=== PATIENT | female | born 1985 | race Caucasian/White ===

== ENCOUNTER 2018-02-14 00:32 | Inpatient (IN) ==
--- NOTE | 2018-02-14 01:03 | Emergency Department Note ---
Disposition Clinical Impression: Suicidal ideation, Polysubstance (excluding opioids) dependence Bipolar affective disorder, current episode mixed Qualifiers: Current episode severity: unspecified Qualified Code(s): F31.60 - Bipolar disorder, current episode mixed, unspecified Disposition: Home, Self-Care Referrals: NONE,PCP [Primary Care Provider] - Leonela Zhong [Family Provider] - Forms: ED Satisfaction Letter Time of Disposition: 06:37 Psych HPI - General Chief Complaint: ED Psychiatric Symptoms Stated Complaint: si,hi off meds Time Seen by Provider: 02/14/18 00:55 Nursing Notes Reviewed: Yes Vital Signs Reviewed: Yes - History of Present Illness Pt complaint: suicidal ideation If medical clearance, reason: psychiatric condition Onset (ago): hour(s) Duration: constant, getting worse History of similar episodes: Yes Improves with: none Worsens with: none Context: recent drug abuse, not taking psychiatric medications Alleged intoxication: No Associated Psychiatric Symptoms: depression, suicidal ideation, racing thoughts , anxiety Associated symptoms: Denies: headache, shortness of breath, nausea, vomiting Traumatic symptoms: denies traumatic injury Treatments prior to arrival: none Self harm or harm to others: admits thoughts of self harm, denies having a plan - Related Data Previous Rx's Medication Instructions Recorded hydrOXYzine pamoate [HydrOXYzine 25 mg PO TID PRN #90 capsule 12/13/17 Pamoate] lamoTRIgine [Lamictal] 25 mg PO BID #60 tablet 12/13/17 traZODone [TraZODone] 50 mg PO HS PRN #30 tablet 12/13/17 Allergies Allergy/AdvReac Type Severity Reaction Status Date / Time No Known Allergies Allergy Verified 02/14/18 00:38 All systems ED: reviewed and negative except as stated. Review of Systems: As Per HPI Constitutional: Denies: fever, chills Eyes: Denies: vision change ENT ED: Reports: other (mouth sores) Cardiovascular: Denies: chest pain Respiratory: Denies: dyspnea Gastrointestinal: Denies: abdominal pain, nausea, vomiting Genitourinary: Denies: dysuria Musculoskeletal: Denies: back pain Integumentary: Denies: rash Neurological: Denies: headache Psychiatric: Reports: as per HPI Endocrine: Denies: fatigue Hematological/Lymphatic: Denies: easy bleeding Allergic/Immunologic: Denies: facial swelling Past Medical History - Past Medical History Medical history: Reports: no medical history Surgical history: Reports: non-contributory, cholecystectomy Psychiatric history: Reports: anxiety, bipolar, depression, prior suicide attempt, previous psychiatric hospitalization - Social History Smoking Status: Current every day smoker Smokeless Tobacco Status: No Alcohol use: Reports: occasionally Drug use: Reports: methamphetamine, IV Drug Use, prescription drug abuse Physical Exam - General Limitations: no limitations General appearance: alert, in no apparent distress - Head Head exam: normocephalic - Eye Eye exam: Present: EOMI, conjunctival injection - ENT ENT exam: normal oropharynx - Neck Neck exam: Present: full ROM - Chest Chest inspection: Present: symmetric chest wall rise - Respiratory Respiratory exam: Absent: respiratory distress - Cardiovascular Cardiovascular exam: Present: regular rate - Abdominal Exam Abdominal exam: Present: soft, Non-Tender - Extremities Exam Extremities exam: Present: full ROM, normal capillary refill - Back Exam Back exam: Present: full ROM - Neurological Exam Neurological exam: Present: alert - Psychiatric Psychiatric exam: Present: normal affect, anxious - Skin Skin exam: Present: warm, dry, intact, normal color. 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 Report patient is a [facility], but had left recent come back. She mentioned she is currently off her psychiatric medications. She denies any injury or trauma. We will attempt to medically clear her for 1a evaluation. - Reevaluation(s) Reevaluation #1: Patient's potassium 3.1. Likely nutritional, By mouth potassium ordered here. The rest of her lab work appears to be at her baseline. She does have a slightly decreased WBC count, she does have known history of hepatitis. This appears to be chronic. Patient was concerned with sores in her mouth. No notable sores on my examination. Patient did have some other concerns, that I do feel can be evaluated on an outpatient for primary care basis. At this point I see no acute concerns, I do feel patient is safe for behavioral health evaluation. Time: 03:04 Reevaluation #2: Patient was evaluated by behavioral health staff, and I discussed patient with Maria Del Rosario Yin RN who had evaluated patient was discussed with on-call psychiatrist Dr. Landin, they had advised for inpatient treatment for stabilization. At this time I am told that there were no available behavioral health beds, and patient will be placed. Patient has requested her home medications including hydroxyzine, and trazodone, as well as a nicotine patch. These have been ordered. Additionally patient mentions recent IV drug use in risky sexual activities. Patient does have dated history of hepatitis C, we will order a hepatitis panel, and HIV testing. Patient's vitals remained stable. She has no abdominal tenderness. No evidence of any acute medical concerns at this time , I do feel patient will be safe for transfer for transfer. At this time it seemed to my shift, care of this patient will be transferred to day shift providers, Rosalba Martinez PA-C, likely daytime attending. Please see their documentation for additional details. At this time I feel it is likely that patient will be transferred, however please see their documentation for final disposition. Time: 06:00 Vital Signs Temperature 98.6 F 02/14/18 00:34 Pulse Rate 93 02/14/18 00:34 Respiratory Rate 16 02/14/18 00:34 Blood Pressure 93/56 02/14/18 00:34 O2 Sat by Pulse Oximetry 93 02/14/18 00:34 Temperature 99.1 F 02/14/18 03:09 Pulse Rate 92 02/14/18 06:12 Respiratory Rate 16 02/14/18 06:12 Blood Pressure 136/88 02/14/18 06:12 O2 Sat by Pulse Oximetry 98 02/14/18 06:12 Oxygen Delivery Oxygen Delivery Room Air Psych - MDM Narrative Medical decision making narrative: Laboratory Tests 02/14/18 02/14/18 02/14/18 00:54 00:54 00:55 WBC RBC Hgb Hct MCV MCH MCHC RDW Plt Count MPV Immature Gran % Seg Neutrophils % Lymphocytes % Monocytes % Eosinophils % Basophils % Neutrophils # Lymphocytes # Monocytes # Eosinophils # Basophils # Nucleated RBCs/100 WBC Reactive Lymphocytes Platelet Estimate Large Platelets Microcytosis Sodium Potassium Chloride Carbon Dioxide BUN Creatinine Est GFR ( Amer) Est GFR (Non-Af Amer) BUN/Creatinine Ratio Glucose Calculated Osmolality Calcium TSH Urine Color Dark Yellow Urine Clarity Cloudy A Urine pH 6.0 Ur Specific [place] > 1.030 H Urine Protein 100 H Urine Glucose (UA) Normal Urine Ketones Trace H Urine Blood Negative Urine Nitrite Negative Urine Bilirubin Negative Urine Urobilinogen Normal Ur Leukocyte Esterase Negative Urine Microscopic RBC 0-3 Urine Microscopic WBC 3-5 H Ur Squamous Epith Cells Many H Urine Bacteria None Seen Hyaline Casts None Seen Urine Mucus Few Ur Culture Indicated? NO Urine Test Negative Salicylates Urine Opiates Screen Negative Acetaminophen Ur Barbiturates Screen Negative Ur Phencyclidine Scrn Negative Ur Amphetamines Screen Positive H U Benzodiazepines Scrn Negative Urine Cocaine Screen Negative U Marijuana (THC) Screen Negative Ethyl Alcohol 02/14/18 02/14/18 02/14/18 01:04 01:04 01:05 WBC 3.3 L RBC 4.43 Hgb 11.6 Hct 35.0 L MCV 79.0 L MCH 26.2 L MCHC 33.1 RDW 14.8 H Plt Count 142 MPV 10.7 Immature Gran % 0.3 Seg Neutrophils % 42.7 Lymphocytes % 44.5 Monocytes % 11.0 Eosinophils % 0.9 Basophils % 0.6 Neutrophils # 1.4 L Lymphocytes # 1.5 Monocytes # 0.4 Eosinophils # 0.0 Basophils # 0.0 Nucleated RBCs/100 WBC 0.6 H Reactive Lymphocytes Present A Platelet Estimate Normal Large Platelets Present A Microcytosis Present A Sodium 139 Potassium 3.1 L Chloride 106 Carbon Dioxide 23 BUN 15 Creatinine 0.81 Est GFR ( Amer) > 60 Est GFR (Non-Af Amer) > 60 BUN/Creatinine Ratio 19 Glucose 117 H Calculated Osmolality 290 Calcium 9.3 TSH 0.897 Urine Color Urine Clarity Urine pH Ur Specific [place] Urine Protein Urine Glucose (UA) Urine Ketones Urine Blood Urine Nitrite Urine Bilirubin Urine Urobilinogen Ur Leukocyte Esterase Urine Microscopic RBC Urine Microscopic WBC Ur Squamous Epith Cells Urine Bacteria Hyaline Casts Urine Mucus Ur Culture Indicated? Urine Test Salicylates < 2.5 L Urine Opiates Screen Acetaminophen < 10 L Ur Barbiturates Screen Ur Phencyclidine Scrn Ur Amphetamines Screen U Benzodiazepines Scrn Urine Cocaine Screen U Marijuana (THC) Screen Ethyl Alcohol < 10 - Lab Data Result diagrams: 02/14/18 01:04 02/14/18 01:04 Lab Results 02/14/18 02/14/18 02/14/18 Range/Units 00:54 00:54 00:55 WBC (4.3-11.1) K/mcL RBC (3.82-4.97) M/mcL Hgb (11.5-15.4) g/dL Hct (35.3-44.9) % MCV (83.0-100.0) fL MCH (28.0-33.3) pg MCHC (31.6-35.5) g/dL RDW (11.5-14.5) % Plt Count (140-400) K/mcL MPV (9.4-12.4) fL Immature Gran % (0-4) % Seg Neutrophils % % Lymphocytes % % Monocytes % % Eosinophils % % Basophils % % Neutrophils # (1.6-8.9) K/mcL Lymphocytes # (0.6-4.6) K/mcL Monocytes # (0.0-1.3) K/mcL Eosinophils # (0.0-0.6) K/mcL Basophils # (0.0-0.2) K/mcL Nucleated RBCs/100 WBC (0) /100 WBC Reactive Lymphocytes (Not Present) Platelet Estimate (Normal) Large Platelets (Not Present) Microcytosis (Not Present) Sodium (136-145) mEq/L Potassium (3.5-5.1) mEq/L Chloride (98-107) mEq/L Carbon Dioxide (23-29) mEq/L BUN (6-20) mg/dL Creatinine (0.60-1.20) mg/dL Est GFR ( Amer) (> 60) Est GFR (Non-Af Amer) (> 60) BUN/Creatinine Ratio (6-26) Glucose (70-105) mg/dL Calculated Osmolality (280-300) Calcium (8.6-10.3) mg/dL TSH (0.340-5.600) mcIU/mL Urine Color Dark Yellow (Yellow) Urine Clarity Cloudy A (Clear) Urine pH 6.0 (5.0-8.0) pH Units Ur Specific [place] > 1.030 H (1.010-1.025) Urine Protein 100 H (Neg-Trace) mg/dL Urine Glucose (UA) Normal (Normal) mg/dL Urine Ketones Trace H (Negative) mg/dL Urine Blood Negative (Negative) Urine Nitrite Negative (Negative) Urine Bilirubin Negative (Negative) Urine Urobilinogen Normal (Normal) mg/dL Ur Leukocyte Esterase Negative (Negative) Urine Microscopic RBC 0-3 (0-3) per hpf Urine Microscopic WBC 3-5 H (0-3) per hpf Ur Squamous Epith Cells Many H (None-Few) per lpf Urine Bacteria None Seen (None-Few) per hpf Hyaline Casts None Seen (None-Few) per lpf Urine Mucus Few (Few) Ur Culture Indicated? NO (NO) Urine Test Negative (Negative) Salicylates (15.0-30.0) mg/dL Urine Opiates Screen Negative (Msrlmh=239) ng/mL Acetaminophen (10-20) mcg/mL Ur Barbiturates Screen Negative (Exnkuu=131) ng/mL Ur Phencyclidine Scrn Negative (Cutoff=25) ng/mL Ur Amphetamines Screen Positive H (Pqmehx=1117) ng/mL U Benzodiazepines Scrn Negative (Qobmnh=693) ng/mL Urine Cocaine Screen Negative (Cutoff= 300) ng/mL U Marijuana (THC) Screen Negative (Cutoff = 50) ng/mL Ethyl Alcohol (Less than 10) mg/dL 02/14/18 02/14/18 02/14/18 Range/Units 01:04 01:04 01:05 WBC 3.3 L (4.3-11.1) K/mcL RBC 4.43 (3.82-4.97) M/mcL Hgb 11.6 (11.5-15.4) g/dL Hct 35.0 L (35.3-44.9) % MCV 79.0 L (83.0-100.0) fL MCH 26.2 L (28.0-33.3) pg MCHC 33.1 (31.6-35.5) g/dL RDW 14.8 H (11.5-14.5) % Plt Count 142 (140-400) K/mcL MPV 10.7 (9.4-12.4) fL Immature Gran % 0.3 (0-4) % Seg Neutrophils % 42.7 % Lymphocytes % 44.5 % Monocytes % 11.0 % Eosinophils % 0.9 % Basophils % 0.6 % Neutrophils # 1.4 L (1.6-8.9) K/mcL Lymphocytes # 1.5 (0.6-4.6) K/mcL Monocytes # 0.4 (0.0-1.3) K/mcL Eosinophils # 0.0 (0.0-0.6) K/mcL Basophils # 0.0 (0.0-0.2) K/mcL Nucleated RBCs/100 WBC 0.6 H (0) /100 WBC Reactive Lymphocytes Present A (Not Present) Platelet Estimate Normal (Normal) Large Platelets Present A (Not Present) Microcytosis Present A (Not Present) Sodium 139 (136-145) mEq/L Potassium 3.1 L (3.5-5.1) mEq/L Chloride 106 (98-107) mEq/L Carbon Dioxide 23 (23-29) mEq/L BUN 15 (6-20) mg/dL Creatinine 0.81 (0.60-1.20) mg/dL Est GFR ( Amer) > 60 (> 60) Est GFR (Non-Af Amer) > 60 (> 60) BUN/Creatinine Ratio 19 (6-26) Glucose 117 H (70-105) mg/dL Calculated Osmolality 290 (280-300) Calcium 9.3 (8.6-10.3) mg/dL TSH 0.897 (0.340-5.600) mcIU/mL Urine Color (Yellow) Urine Clarity (Clear) Urine pH (5.0-8.0) pH Units Ur Specific [place] (1.010-1.025) Urine Protein (Neg-Trace) mg/dL Urine Glucose (UA) (Normal) mg/dL Urine Ketones (Negative) mg/dL Urine Blood (Negative) Urine Nitrite (Negative) Urine Bilirubin (Negative) Urine Urobilinogen (Normal) mg/dL Ur Leukocyte Esterase (Negative) Urine Microscopic RBC (0-3) per hpf Urine Microscopic WBC (0-3) per hpf Ur Squamous Epith Cells (None-Few) per lpf Urine Bacteria (None-Few) per hpf Hyaline Casts (None-Few) per lpf Urine Mucus (Few) Ur Culture Indicated? (NO) Urine Test (Negative) Salicylates < 2.5 L (15.0-30.0) mg/dL Urine Opiates Screen (Tnkqwf=723) ng/mL Acetaminophen < 10 L (10-20) mcg/mL Ur Barbiturates Screen (Mvapnp=783) ng/mL Ur Phencyclidine Scrn (Cutoff=25) ng/mL Ur Amphetamines Screen (Dnndtx=2804) ng/mL U Benzodiazepines Scrn (Qhdxxo=753) ng/mL Urine Cocaine Screen (Cutoff= 300) ng/mL U Marijuana (THC) Screen (Cutoff = 50) ng/mL Ethyl Alcohol < 10 (Less than 10) mg/dL Psychiatric Medical Clearance - Medical Clearance Checklist Does the patient have a NEW psychiatric condition?: No Any abnormalities indicating possible medical illness?: No Any history of medical issues?: No Medical History: No Social History Section defined Any abnormal vital signs prior to transfer?: No Current Vitals: Last Vital Signs Temp 99.1 F 02/14/18 03:09 Pulse 92 02/14/18 06:12 Resp 16 02/14/18 06:12 BP 136/88 02/14/18 06:12 Pulse Ox 98 02/14/18 06:12 Is the patient intoxicated or cognitively impaired?: No Psychiatric Lab Panel: Drug Levels and Toxicity 02/14/18 02/14/18 00:54 01:04 Urine Opiates Screen Negative Acetaminophen < 10 L Ur Barbiturates Screen Negative Ur Phencyclidine Scrn Negative Ur Amphetamines Screen Positive H U Benzodiazepines Scrn Negative Urine Cocaine Screen Negative U Marijuana (THC) Screen Negative Ethyl Alcohol < 10 Any abnormalities on the physical exam?: No Any abnormal labs?: Yes Abnormal Labs: Abnormal lab results WBC 3.3 K/mcL (4.3-11.1) L 02/14/18 01:04 Hct 35.0 % (35.3-44.9) L 02/14/18 01:04 MCV 79.0 fL (83.0-100.0) L 02/14/18 01:04 MCH 26.2 pg (28.0-33.3) L 02/14/18 01:04 RDW 14.8 % (11.5-14.5) H 02/14/18 01:04 Neutrophils # 1.4 K/mcL (1.6-8.9) L 02/14/18 01:04 Nucleated RBCs/100 WBC 0.6 /100 WBC (0) H 02/14/18 01:04 Reactive Lymphocytes Present (Not Present) A 02/14/18 01:04 Large Platelets Present (Not Present) A 02/14/18 01:04 Microcytosis Present (Not Present) A 02/14/18 01:04 Potassium 3.1 mEq/L (3.5-5.1) L 02/14/18 01:04 Glucose 117 mg/dL (70-105) H 02/14/18 01:04 Urine Clarity Cloudy (Clear) A 02/14/18 00:54 Ur Specific [place] > 1.030 (1.010-1.025) H 02/14/18 00:54 Urine Protein 100 mg/dL (Neg-Trace) H 02/14/18 00:54 Urine Ketones Trace mg/dL (Negative) H 02/14/18 00:54 Urine Microscopic WBC 3-5 per hpf (0-3) H 02/14/18 00:54 Ur Squamous Epith Cells Many per lpf (None-Few) H 02/14/18 00:54 Salicylates < 2.5 mg/dL (15.0-30.0) L 02/14/18 01:04 Acetaminophen < 10 mcg/mL (10-20) L 02/14/18 01:04 Ur Amphetamines Screen Positive ng/mL (Hirugc=3087) H 02/14/18 00:54 Does the patient require durable medical equiptment?: No Is the patient ambulatory?: Yes Is the patient a fall risk?: No Has the patient been medically cleared?: Yes Any acute medical condition require Tx prior to transfer?: No Statement of Medical Clearance: I have evaluated the patient, reviewed diagnostic information, and certify that the patient's medical condition is sufficiently stable that transfer to the psychiatric unit does not pose a significant risk of deterioration.
[2018-02-14 01:08] LABS: Bilirubin,Urine Negative (Negative); Blood,Urine Negative (Negative); Clarity,Urine Cloudy (Clear); Color,Urine Dark Yellow (Yellow); Glucose,Urine (UA) Normal (Normal); Ketones,Urine Trace mg/dL (Negative); Leukocyte Esterase,Urine Negative (Negative); Nitrite,Urine Negative (Negative); Protein,Urine 100 mg/dL (Neg-Trace); Specific Gravity,Urine > 1.030 (1.010-1.025); Urobilinogen,Urine Normal (Normal)
[2018-02-14 01:11] LABS: Bacteria,Urine None Seen per hpf (None-Few); Squamous Epithelial Cell,Urine Many per lpf (None-Few)
[2018-02-14 01:13] LABS: Hyaline Casts,Urine None Seen per lpf (None-Few); Mucus,Urine Few (Few)
[2018-02-14 01:14] LABS: RBC,Urine 0-3 per hpf (0-3)
[2018-02-14 01:17] LABS: Amphetamine Screen,Urine Positive ng/mL (Cutoff=1000); Barbiturate Screen,Urine Negative ng/mL (Cutoff=200); Benzodiazepines Screen,Urine Negative ng/mL (Cutoff=200); Cannabinoid Screen,Urine Negative ng/mL (Cutoff = 50); Cocaine Screen,Urine Negative ng/mL (Cutoff= 300); Opiate Screen,Urine Negative ng/mL (Cutoff=300); Phencyclidine Screen,Urine Negative ng/mL (Cutoff=25)
[2018-02-14 01:25] LABS: Basophils % 0.6 %; Eosinophils % 0.9 %; Hemoglobin 11.6 g/dL (11.5-15.4); Immature Granulocytes % 0.3 % (0-4); Lymphocytes # 1.5 K/mcL (0.6-4.6); Lymphocytes % 44.5 %; Mean Corpuscular HGB Conc 33.1 g/dL (31.6-35.5); Mean Corpuscular Hemoglobin 26.2 pg (28.0-33.3); Mean Platelet Volume 10.7 fL (9.4-12.4); Monocytes # 0.4 K/mcL (0.0-1.3); Neutrophils # 1.4 K/mcL (1.6-8.9); Nucleated Red Blood Cells 0.6 /100 WBC (0); Platelet Count 142 K/mcL (140-400); Red Blood Count 4.43 M/mcL (3.82-4.97); Red Cell Distribution Width 14.8 % (11.5-14.5); Segmented Neutrophils % 42.7 %
[2018-02-14 01:33] LABS: Acetaminophen < 10 mcg/mL (10-20); BUN/Creatinine Ratio 19 (6-26); Blood Urea Nitrogen 15 mg/dL (6-20); Calcium 9.3 mg/dL (8.6-10.3); Carbon Dioxide 23 mEq/L (23-29); Chloride 106 mEq/L (98-107); Ethanol < 10 mg/dL (Less than 10); Glucose 117 mg/dL (70-105); Osmolality,Calculated 290 (280-300); Potassium 3.1 mEq/L (3.5-5.1); Salicylate < 2.5 mg/dL (15.0-30.0); Sodium 139 mEq/L (136-145); eGFR For African Americans > 60 (> 60); eGFR For Non-African Americans > 60 (> 60)
[2018-02-14 01:42] LABS: Large Platelets Present (Not Present); Platelet Estimate Normal (Normal); Reactive Lymphocytes Present (Not Present)
[2018-02-14 01:43] LABS: Microcytosis Present (Not Present)
[2018-02-14] MEDS ORDERED: Ibuprofen 600 MG TABLET PO ONE (04:42)
[2018-02-14] MEDS ORDERED: Nicotine 14 MG PATCH.TD24 TD SCH (05:45)
[2018-02-14] MEDS ORDERED: traZODone 50 MG TABLET PO ONE (06:27)
[2018-02-14 07:55] LABS: Hepatitis A Antibody IgM Nonreactive (Nonreactive)
[2018-02-14 08:04] LABS: Hepatitis B Core IgM Reactive (Nonreactive); Hepatitis C Virus Antibody Reactive (Nonreactive)
[2018-02-14 12:40] LABS: Hepatitis B Surface Antigen Nonreactive (Nonreactive)
[2018-02-14] MEDS ORDERED: *HR* LORazepam 2 MG/ML VIAL IM PRN (18:38)
[2018-02-14] MEDS ORDERED: hydrOXYzine pamoate 25 MG CAPSULE PO PRN (18:38)
[2018-02-14] MEDS ORDERED: Mag Hydrox/Al Hydrox/Simeth 30 ML UDC PO PRN (18:38)
[2018-02-14] MEDS ORDERED: Ibuprofen 400 MG TABLET PO PRN (18:38)
[2018-02-14] MEDS ORDERED: *HR* LORazepam 1 MG TABLET PO PRN (18:38)
[2018-02-14] MEDS ORDERED: Haloperidol Lactate 5 MG/ML VIAL IM PRN (18:38)
[2018-02-14] MEDS ORDERED: MOM Conc 10 ML UD.LIQ PO PRN (18:38)
[2018-02-14] MEDS: traZODone 50 MG TABLET PO PRN (21:05)
[2018-02-15] MEDS: Nicotine 21 MG PATCH.TD24 TD SCH (08:28)
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
[2018-02-15] MEDS: hydrOXYzine pamoate 25 MG CAPSULE PO PRN ×2 (12:25→20:31)
[2018-02-15] MEDS: traZODone 50 MG TABLET PO PRN (20:31)
[2018-02-15] MEDS ORDERED: lamoTRIgine 25 MG TABLET PO SCH (21:00)
[2018-02-16] MEDS: Nicotine 21 MG PATCH.TD24 TD SCH (08:22)
[2018-02-16 09:52] VITALS: BP 105/60
--- NOTE | 2018-02-16 10:05 | Discharge Summary ---
Date of Encounter: 02/16/18 Time of Encounter: 09:10 Diagnosis - Discharge Diagnosis (1) Bipolar affective disorder, current episode mixed Status: Acute Qualifiers: Current episode severity: unspecified Qualified Code(s): F31.60 - Bipolar disorder, current episode mixed, unspecified (2) Amphetamine abuse Status: Acute Medications - Discharge Medications Prescriptions: hydrOXYzine pamoate [HydrOXYzine Pamoate] 50 mg PO TID PRN 30 Days #60 capsule PRN Reason: Anxiety lamoTRIgine [Lamictal] 25 mg PO BID 14 Days #45 tablet Nicotine Patch [Nicoderm] 21 mg TD DAILY 30 Days #30 patch.td24 traZODone [TraZODone] 50 mg PO HS PRN 30 Days #14 tablet PRN Reason: Insomnia Nicotine Patch [Nicoderm] 21 mg TD DAILY 30 Days #30 patch.td24 02/16/18 [Rx] hydrOXYzine pamoate [HydrOXYzine Pamoate] 50 mg PO TID PRN 30 Days #60 capsule 02/16/18 [Rx] lamoTRIgine [Lamictal] 25 mg PO BID 14 Days #45 tablet 02/16/18 [Rx] traZODone [TraZODone] 50 mg PO HS PRN 30 Days #14 tablet 02/16/18 [Rx] 3 Allergy/AdvReac Type Severity Reaction Status Date / Time No Known Allergies Allergy Verified 02/14/18 00:38 Provider Date of admission: 02/14/18 08:52 Primary care physician: PCP NONE Psychiatry Exam - Constitutional Vitals: Temp Pulse Resp BP Pulse Ox 98.6 F 83 16 105/60 98 02/16/18 09:00 02/16/18 09:00 02/16/18 09:00 02/16/18 09:00 02/14/18 06:12 Hospital Course Hospital course: Ms. Espinoza is a 33 year old female Time spent discussing smoking cessation with patient: 3 to 10 minutes Does patient wish to continue nicotine replacement upon disc: Yes - Time Spent with Patient Total time spent providing and/or coordinating discharge services: 20 min Less than 30 minutes Assessment and Plan - Patient/Caregiver Discharge Instructions Activity: resume usual activities as tolerated Diet: regular diet Additional Instructions: Patient will be returning to [facility] on discharge from the hospital to resume sober living with IOP AOD services. - Follow up Plan Follow up with: [facility] [Outside] - 03/04/18 9:00 am (The above appointment is with Tasha Dumont for psychiatry. Please bring med list, insurance card and photo ID. Arrive 30 minutes early:0830am. [facility] staff will be calling with an appointment for mental health counselling.) Functional capacity at discharge: independent ambulation Overall status at discharge: Stable Disposition: Transfer Other Quality - Multiple Antipsychotics Patient discharged on 2 or more antipsychotic medications: No Procedures - Procedures Procedures: Medication Management, Crisis Stabilization, Supportive Therapy, Group Therapy, Psychoeducational Therapy
[2018-02-16] MEDS ORDERED: lamoTRIgine 25 MG TABLET PO SCH (10:15)
== END 2018-02-16 11:30 | disposition other institution (70) | DRG 753 ==
LOC: EMEROO 00:32 → 1ANU 08:52
PROVIDERS: ADMIT Psychiatry & Neurology Psychiatry; ATTEND Psychiatry & Neurology Psychiatry